=== PATIENT | female | born 1955 | race Caucasian/White ===

== ENCOUNTER 2017-10-05 22:31 | Inpatient (IN) | payer MEDICAID ==
[~2017-10-05] VITALS: Ht 152.4 cm; Wt 63.5 kg
[2017-10-05 22:34] VITALS: Ht 152.4 cm; Wt 63.5 kg
[2017-10-06] MEDS ORDERED: PIPER-TAZO 3.375 GM IV (PMX) 50 ML IVPB STA (00:06)
[2017-10-06] MEDS ORDERED: SOD CHLORIDE 0.9% 500 ML IV STA (00:06)
[2017-10-06] MEDS ORDERED: VANCOMYCIN 1 GM (PMX) 250 ML IVPB SCH (00:30)
[2017-10-06 00:32] LABS: BASOPHILS % 0.3 % (0.0-2.0); EOSINOPHILS # 0.3 10^3/ul (0.0-0.5); EOSINOPHILS % 3.2 % (0.0-7.0); HEMATOCRIT 34.7 % (37.0-47.0); HEMOGLOBIN 11.4 g/dl (12.0-16.0); LYMPHOCYTES # 2.8 10^3/ul (0.8-2.9); LYMPHOCYTES % 31.7 % (15.0-51.0); MEAN CORPUSCULAR HEMOGLOBIN 27.8 pg (29.0-33.0); MEAN CORPUSCULAR HGB CONC 32.9 g/dl (32.0-37.0); MEAN CORPUSCULAR VOLUME 84.6 fl (82.0-101.0); MEAN PLATELET VOLUME 10.3 fl (7.4-10.4); MONOCYTE # 0.6 10^3/ul (0.3-0.9); NEUTROPHILS % 57.6 % (39.0-77.0); PLATELET COUNT 278 10^3/UL (140-415); RED CELL DISTRIBUTION WIDTH 12.3 % (11.5-14.5); WHITE BLOOD COUNT 8.7 10^3/ul (4.8-10.8)
[2017-10-06 00:48] LABS: ALBUMIN 3.7 g/dl (3.3-4.9); ALBUMIN/GLOBULIN RATIO 1.02; BILIRUBIN,INDIRECT 0.2 mg/dl (0-1.1); BILIRUBIN,TOTAL 0.2 mg/dl (0.2-1.3); CALCIUM 8.8 mg/dl (8.4-10.2); CREATININE 0.6 mg/dl (0.44-1.00); POTASSIUM 3.9 mmol/L (3.5-5.1); TOTAL PROTEIN 7.3 g/dl (6.1-8.1)
[2017-10-06 00:53] LABS: INR 0.83; PROTIME 11.5 Sec (11.9-14.9); PT RATIO 0.9
[2017-10-06 00:54] LABS: PARTIAL THROMBOPLASTIN TIME 27.6 Sec (25.0-35.0)
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
[2017-10-06 03:24] VITALS: BP 162/75; RESP 20
[2017-10-06] MEDS ORDERED: [UNRECOGNIZED DRUG - REMARK] (03:28)
[2017-10-06] MEDS ORDERED: morphine 4 MG/ML VIAL IV PRN (03:30)
[2017-10-06] MEDS ORDERED: ONDANSETRON 4 MG INJ IV PRN (03:30)
[2017-10-06] MEDS ORDERED: ACETAMINOPHEN 325 MG TAB PO PRN (03:30)
[2017-10-06] MEDS ORDERED: VANCOMYCIN IV PER PHARMACY XX SCH (03:30)
[2017-10-06] MEDS ORDERED: hydrALAzine 20 MG INJ IV PRN (03:30)
[2017-10-06 03:38] VITALS: BP 146/72; PULSE 64
[2017-10-06] MEDS: CEFEPIME 1GM/50 ML (PMX) 50 ML IVPB SCH ×3 (03:48→21:11)
[2017-10-06 05:56] LABS: BASOPHILS % 0.4 % (0.0-2.0); EOSINOPHILS # 0.3 10^3/ul (0.0-0.5); EOSINOPHILS % 3.8 % (0.0-7.0); HEMATOCRIT 33.6 % (37.0-47.0); HEMOGLOBIN 10.9 g/dl (12.0-16.0); LYMPHOCYTES # 2.6 10^3/ul (0.8-2.9); LYMPHOCYTES % 34.7 % (15.0-51.0); MEAN CORPUSCULAR HEMOGLOBIN 27.7 pg (29.0-33.0); MEAN CORPUSCULAR HGB CONC 32.4 g/dl (32.0-37.0); MEAN CORPUSCULAR VOLUME 85.5 fl (82.0-101.0); MEAN PLATELET VOLUME 10.4 fl (7.4-10.4); MONOCYTE # 0.5 10^3/ul (0.3-0.9); MONOCYTES % 6.3 % (0.0-11.0); NEUTROPHIL # 4.1 10^3/ul (1.6-7.5); NEUTROPHILS % 54.5 % (39.0-77.0); PLATELET COUNT 258 10^3/UL (140-415); RED BLOOD COUNT 3.93 10^6/ul (4.20-5.40); RED CELL DISTRIBUTION WIDTH 12.2 % (11.5-14.5); WHITE BLOOD COUNT 7.6 10^3/ul (4.8-10.8)
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
[2017-10-06 06:19] LABS: ALBUMIN 3.2 g/dl (3.3-4.9); ALBUMIN/GLOBULIN RATIO 0.94; BILIRUBIN,INDIRECT 0.3 mg/dl (0-1.1); BILIRUBIN,TOTAL 0.3 mg/dl (0.2-1.3); CALCIUM 8.3 mg/dl (8.4-10.2); CREATININE 0.56 mg/dl (0.44-1.00); MAGNESIUM 1.9 mg/dl (1.7-2.5); PHOSPHORUS 3.8 mg/dl (2.5-4.9); TOTAL PROTEIN 6.6 g/dl (6.1-8.1)
[2017-10-06 07:53] VITALS: BP 126/77; RESP 18
[2017-10-06] MEDS: HEPARIN 5,000 UNIT/0.5 ML VIAL SC SCH ×2 (08:45→21:24)
[2017-10-06] MEDS: AMLODIPINE 10 MG TAB PO SCH (08:45)
--- NOTE | 2017-10-06 12:40 | RADRPT ---
PROCEDURE: XR foot CLINICAL INDICATION: Right lateral foot infected wound TECHNIQUE: Three views of the right foot COMPARISON: None available FINDINGS: Soft tissue swelling including at the lateral foot where an arrow marr the area of concern. Questio nable small area of poorly defined lucency in the soft tissues lateral to the fifth metatarsal. No specific evidence to suggest osteomyelitis. No radiopaque foreign body detected. The lateral image reveals a small ossification in close proximity to the distal posterior tibia; it is not certain if this finding is related to the tibia such as an enthesiophyte or evidence of traum a (of uncertain age). Posterior calcaneus small enthesiophyte; plantar calcaneal small spur. Dorsal midfoot degenerative c hanges. Polyarticular degenerative changes. IMPRESSION: 1. Soft tissue swelling, as detailed above. This is consistent with known infection. Questionable s mall area of poorly defined lucency in the soft tissues lateral to the fifth metatarsal; this could represent the infected wound. No radiographic evidence to suggest osteomyelitis. 2. The lateral image reveals a small ossification in close proximity to the distal posterior tibia; it is not certain if this finding is related to the tibia such as an enthesiophyte or evidence of tr auma (of uncertain age). Compare to prior corresponding imaging studies. A right foot MR scan may be performed for improved a nalysis including to evaluate the extent of the infection. RPTAT: TT Physician Vanessa Date Time Electronically viewed and signed by Physician Vanessa on 10/06/2017 12:40 GA/
[2017-10-06] MEDS: VANCOMYCIN 750 MG in DEXTROSE 5% 150 ML IVPB SCH (13:27)
[2017-10-06 14:00] VITALS: BP 131/85; RESP 18
[2017-10-06 19:53] VITALS: BP 131/63; RESP 18
[2017-10-06] MEDS: SILVER SULFADIAZINE 1% 25 GM CR TOP SCH (21:00)
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
[2017-10-07] MEDS: VANCOMYCIN 750 MG in DEXTROSE 5% 150 ML IVPB SCH (01:43)
[2017-10-07 02:10] VITALS: BP 102/52; RESP 16
[2017-10-07] MEDS: SILVER SULFADIAZINE 1% 25 GM CR TOP SCH ×3 (05:27→21:10)
[2017-10-07 07:31] VITALS: BP 140/73; RESP 20
[2017-10-07] MEDS: CEFEPIME 1GM/50 ML (PMX) 50 ML IVPB SCH ×2 (08:52→20:58)
[2017-10-07] MEDS: AMLODIPINE 10 MG TAB PO SCH (08:53)
[2017-10-07] MEDS ORDERED: INFLUENZA VIRUS VACCINE 0.5 ML (DISPENSING) IM* ONE (09:00)
[2017-10-07] MEDS: HEPARIN 5,000 UNIT/0.5 ML VIAL SC SCH ×2 (09:02→21:05)
[2017-10-07] MEDS ORDERED: morphine LIQ (10 MG/5 ML) CUP PO PRN (11:00)
[2017-10-07] MEDS ORDERED: AMLO-147 PO (11:45)
[2017-10-07] MEDS ORDERED: LACT1CAP57 PO (11:45)
[2017-10-07] MEDS ORDERED: SILV25CR7 TOP (11:45)
[2017-10-07] MEDS ORDERED: SULF1TAB31 PO (11:45)
[2017-10-07] MEDS ORDERED: AMOX500C2 PO (11:45)
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
[2017-10-07 14:01] VITALS: BP 126/71; RESP 20
[2017-10-07] MEDS: VANCOMYCIN 1.25 GM in SOD CHLORIDE 0.9% 250 ML IVPB SCH (14:24)
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
[2017-10-07 20:08] VITALS: BP 130/68; RESP 18
[2017-10-08 02:25] VITALS: BP 96/51; RESP 18
[2017-10-08] MEDS: VANCOMYCIN 1.25 GM in SOD CHLORIDE 0.9% 250 ML IVPB SCH (03:06)
[2017-10-08 07:26] VITALS: BP 124/67; RESP 20
[2017-10-08] MEDS: CEFEPIME 1GM/50 ML (PMX) 50 ML IVPB SCH (08:30)
[2017-10-08] MEDS: AMLODIPINE 10 MG TAB PO SCH (08:31)
[2017-10-08] MEDS: HEPARIN 5,000 UNIT/0.5 ML VIAL SC SCH (08:37)
[2017-10-08] MEDS: SILVER SULFADIAZINE 1% 25 GM CR TOP SCH (09:00)
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
[2017-10-08] MEDS ORDERED: HYDR-906 PO (10:30)
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
== END 2017-10-08 12:30 | disposition home or self-care (01) | DRG 593 ==
LOC: E/R 22:31 → MS2 10-06 01:58
PROVIDERS: ADMIT Internal Medicine; ATTEND Internal Medicine
DX: L97.519 Non-pressure chronic ulcer of other part of right foot with unspecified severity (principal); L03.115 Cellulitis of right lower limb; I10 Essential (primary) hypertension; D64.9 Anemia, unspecified; T25.021S Burn of unspecified degree of right foot, sequela; E78.00 Pure hypercholesterolemia, unspecified; X11.8XXS Contact with other hot tap-water, sequela
CPT/HCPCS: 36415; 73630; 80053; 80202; 83690; 83735; 84100; 85025; 85610; 85730; 87040; 87070; 90686; 96365; 96375; J0692; J1644; J2543; J3370; J7040; J7050